=== PATIENT | male | born 1950 | race Caucasian/White ===

== ENCOUNTER 2017-07-04 19:32 | Emergency (ER) | payer OTHER, MEDICAID ==
[~2017-07-04] VITALS: Ht 170.2 cm; Wt 63.5 kg
[~2017-07-04 19:32] MED LIST: ALBUAER3 IN; CITA20TA3 PO; CLOP75TA41 PO; DOXY150C2 PO; GABA250S2 PO; LEVO5TAB2 PO; LOSA50TA6 PO; MELO1TAB56 PO; OMEP20CA74 PO; ONDA4TAB5 PO; PRED-188 PO
[2017-07-04 20:06] LABS: Basophils # (auto) 0.1 uL; Basophils % (auto) 0.9 % (0.0-2.0); Eosinophils # (auto) 0.3 uL; Eosinophils % (auto) 3.6 % (0.0-7.0); Hematocrit 35.1 % (41.0-53.0); Hemoglobin 11.8 g/dL (13.5-17.5); Lymphocytes # (auto) 2.1 uL; Lymphocytes % (auto) 23.7 % (10.0-50.0); Mean Corpuscular Hemoglobin 31.8 pg (28.0-32.0); Mean Corpuscular Hgb Conc. 33.6 g/dL (32.0-36.0); Mean Corpuscular Volume 94.7 fL (80.0-100.0); Monocytes % (auto) 11.5 % (0.0-12.0); Neutrophils # (auto) 5.5 uL; Neutrophils % (auto) 60.3 % (37.0-80.0); Nucleated Red Blood Cells % 0.1 %; Platelet Count (auto) 270 10^3/uL (140-450); Red Cell Distribution Width 16.2 % (11.8-14.3); White Blood Cell 9.1 10^3/uL (4.4-10.8)
[2017-07-04 20:20] LABS: INR 0.94 (0.9-1.15); Partial Thromboplastin Time 29.9 sec (23.78-33.04); Prothrombin Time 10.1 sec (9.27-12.13)
[2017-07-04 20:25] LABS: Alanine Aminotransferase 18 U/L (16-61); Alkaline Phosphatase 90 U/L (45-117); Anion Gap 6 (5-15); Aspartate Aminotransferase 15 U/L (15-37); BUN/Creatinine Ratio 19.5; Bilirubin, Total < 0.1 mg/dL (0.2-1.0); Blood Urea Nitrogen 17 mg/dL (7-18); Calcium 8.5 mg/dL (8.5-10.1); Carbon Dioxide 24 mmol/L (21-32); Chloride 108 mmol/L (98-107); GFR African American 113 mL/min; GFR Non-African American 93 mL/min; Glucose 120 mg/dL (74-106); Potassium 3.9 mmol/L (3.5-5.1); Sodium 138 mmol/L (136-145); Total Protein 6.8 g/dL (6.4-8.2)
[2017-07-04] MEDS ORDERED: IOHEXOL 350 MG/ML 100ML IJ ONE (20:45)
[2017-07-04 21:14] LABS: Magnesium 1.8 mg/dL (1.6-2.6)
[2017-07-04] MEDS ORDERED: HYDR-531 PO (21:41)
[2017-07-04] MEDS ORDERED: CITA10TA70 PO (21:49)
[2017-07-04] MEDS ORDERED: AML5T PO (21:49)
[2017-07-04] MEDS ORDERED: SIMV-8 PO (21:49)
[2017-07-04] MEDS ORDERED: SERT-274 PO (21:49)
[2017-07-04] MEDS ORDERED: LOSA100T22 PO (21:49)
[2017-07-04] MEDS ORDERED: ISOS20TA49 PO (21:49)
[2017-07-04] MEDS ORDERED: MET25T PO (21:49)
[2017-07-04] MEDS ORDERED: TRAZ-184 PO (21:49)
[2017-07-04] MEDS ORDERED: ASPI81CH43 PO (21:49)
[2017-07-04] MEDS ORDERED: CLOP75TA28 PO (21:49)
[2017-07-04] MEDS ORDERED: ENOXAPARIN SOD 60 MG/0.6 ML SYRINGE SC ONE (22:45)
[2017-07-04] MEDS ORDERED: MORPHINE SULFATE 8mg/ml INJ SDV IV ONE (23:00)
[2017-07-05] MEDS ORDERED: MORPHINE SULFATE 8mg/ml INJ SDV IV ONE (02:00)
[2017-07-05 06:54] VITALS: BP 125/71
[2017-07-05] MEDS ORDERED: WARFARIN SODIUM 5 MG TAB PO ONE (17:00)
== END 2017-07-08 07:21 | disposition home or self-care (01) ==
LOC: EDBD 19:32 → ER 19:36
DX: I70.202 Unspecified atherosclerosis of native arteries of extremities, left leg (principal); I74.5 Embolism and thrombosis of iliac artery; R26.2 Difficulty in walking, not elsewhere classified; I10 Essential (primary) hypertension; J44.9 Chronic obstructive pulmonary disease, unspecified; F17.210 Nicotine dependence, cigarettes, uncomplicated; Z79.01 Long term (current) use of anticoagulants; Z79.82 Long term (current) use of aspirin; Z86.73 Personal history of transient ischemic attack (TIA), and cerebral infarction without residual deficits; Z95.5 Presence of coronary angioplasty implant and graft
CPT/HCPCS: 36415; 71045; 73562; 73706; 80053; 83735; 83880; 84484; 85025; 85379; 85610; 85730; 93005; 93971; 96372; 96374; 96376; 99285; J1650; J2270; Q9967

== ENCOUNTER 2017-12-04 09:24 | Emergency (ER) | payer OTHER, MEDICAID ==
[~2017-12-04] VITALS: Ht 175.3 cm; Wt 77.1 kg
[~2017-12-04 09:24] MED LIST changes: +AML5T PO; +ASPI81CH43 PO; +CITA10TA70 PO; +CLOP75TA28 PO; +HYDR-531 PO; +ISOS20TA49 PO; +LOSA-46 PO; +LOSA100T22 PO; -LOSA50TA6 PO; +MET25T PO; +SERT-274 PO; +SIMV-8 PO; +TRAZ-184 PO
[2017-12-04 10:22] LABS: Basophils # (auto) 0.1 uL; Lymphocytes % (auto) 15.1 % (10.0-50.0); Monocytes # (auto) 1.2 uL; Neutrophils % (auto) 67.3 % (37.0-80.0)
[2017-12-04 10:24] LABS: Basophils % (auto) 0.8 % (0.0-2.0); Eosinophils # (auto) 0.2 uL; Hematocrit 35.1 % (41.0-53.0); Hemoglobin 11.7 g/dL (13.5-17.5); Lymphocytes # (auto) 1.2 uL; Mean Corpuscular Hemoglobin 30.5 pg (28.0-32.0); Mean Corpuscular Hgb Conc. 33.3 g/dL (32.0-36.0); Mean Corpuscular Volume 91.6 fL (80.0-100.0); Monocytes % (auto) 14.8 % (0.0-12.0); Neutrophils # (auto) 5.5 uL; Nucleated Red Blood Cells % 0.1 %; Platelet Count (auto) 546 10^3/uL (140-450); Red Blood Cells 3.83 10^6/uL (4.5-5.90); Red Cell Distribution Width 15.7 % (11.8-14.3); White Blood Cell 8.2 10^3/uL (4.4-10.8)
[2017-12-04] MEDS ORDERED: PIPERACILLIN-TAZOB 3.375GM 100 ML IV ONE (10:30)
[2017-12-04 10:31] LABS: Albumin 2.9 g/dL (3.4-5.0); BUN/Creatinine Ratio 10.2; Calcium 8.7 mg/dL (8.5-10.1); Magnesium 2.5 mg/dL (1.6-2.6); Potassium 4.4 mmol/L (3.5-5.1)
[2017-12-04 10:33] LABS: Bilirubin, Total 0.4 mg/dL (0.2-1.0); Total Protein 8.5 g/dL (6.4-8.2)
[2017-12-04] MEDS ORDERED: ONDANSETRON HCL 4 MG/2 ML VIAL IV ONE ×2 (10:45→16:45)
[2017-12-04] MEDS ORDERED: MORPHINE SULFATE 4 MG/ML SYR/VIAL IV ONE ×2 (10:45→16:45)
[2017-12-04] MEDS ORDERED: IOHEXOL 350 MG/ML 100ML IJ ONE (10:53)
[2017-12-04 13:35] LABS: Urine Bacteria NONE SEEN /hpf (None Seen); Urine Blood Negative /uL (Negative); Urine WBC 1 /hpf (0 - 3)
[2017-12-04] MEDS ORDERED: ASPirin 81 mg TAB PO ONE (14:00)
[2017-12-04] MEDS ORDERED: HEPARIN DRIP/D5W 100UNITS/ML 250 ML IV SCH (14:30)
[2017-12-04 14:50] LABS: Basophils # (auto) 0 uL; Mean Corpuscular Hgb Conc. 33.5 g/dL (32.0-36.0); White Blood Cell 8.2 10^3/uL (4.4-10.8)
[2017-12-04 14:52] LABS: Basophils % (auto) 0.5 % (0.0-2.0); Eosinophils # (auto) 0.1 uL; Eosinophils % (auto) 0.9 % (0.0-7.0); Hematocrit 35.2 % (41.0-53.0); Hemoglobin 11.8 g/dL (13.5-17.5); Lymphocytes # (auto) 1.4 uL; Lymphocytes % (auto) 16.7 % (10.0-50.0); Mean Corpuscular Hemoglobin 30.7 pg (28.0-32.0); Mean Corpuscular Volume 91.9 fL (80.0-100.0); Monocytes # (auto) 0.8 uL; Monocytes % (auto) 9.9 % (0.0-12.0); Neutrophils # (auto) 5.9 uL; Platelet Count (auto) 537 10^3/uL (140-450); Red Blood Cells 3.83 10^6/uL (4.5-5.90); Red Cell Distribution Width 15.5 % (11.8-14.3)
[2017-12-04 15:20] LABS: Prothrombin Time 68.9 sec (9.27-12.13)
[2017-12-04 15:30] LABS: INR 7.2 (0.9-1.15)
[2017-12-04] MEDS ORDERED: HYDROcodone-ACET 10/325MG TAB PO ONE (18:45)
[2017-12-04 22:25] LABS: Prothrombin Time 57.4 sec (9.27-12.13)
[2017-12-04 22:30] LABS: INR 5.93 (0.9-1.15)
[2017-12-04 22:32] VITALS: BP 116/62
== END 2017-12-04 22:52 | disposition short-term general hospital (02) ==
LOC: EDBD 09:24 → ER 09:24
DX: I96 Gangrene, not elsewhere classified (principal); J44.9 Chronic obstructive pulmonary disease, unspecified; I10 Essential (primary) hypertension; F17.210 Nicotine dependence, cigarettes, uncomplicated; F12.10 Cannabis abuse, uncomplicated; Z91.013 Allergy to seafood; Z86.73 Personal history of transient ischemic attack (TIA), and cerebral infarction without residual deficits; Z79.899 Other long term (current) drug therapy
CPT/HCPCS: 36415; 73700; 75635; 80053; 81001; 83605; 83735; 84484; 85025; 85610; 85730; 87040; 93926; 96365; 96366; 96367; 96375; 96376; 99285; J1642; J1644; J2270; J2405; J2543; Q9967

== ENCOUNTER 2018-04-04 14:17 | Emergency (ER) | payer OTHER, MEDICAID ==
[~2018-04-04] VITALS: Ht 175.3 cm; Wt 59.0 kg
[2018-04-04] MEDS ORDERED: SODIUM CHLORIDE 0.9% 1,000 ML IV ONE (15:00)
[2018-04-04 15:19] LABS: Basophils # (auto) 0 uL; Basophils % (auto) 0.4 % (0.0-2.0); Eosinophils # (auto) 0.3 uL; Eosinophils % (auto) 3.2 % (0.0-7.0); Hematocrit 32.6 % (41.0-53.0); Hemoglobin 10.7 g/dL (13.5-17.5); Lymphocytes # (auto) 1.9 uL; Lymphocytes % (auto) 24.3 % (10.0-50.0); Mean Corpuscular Hemoglobin 29.8 pg (28.0-32.0); Mean Corpuscular Hgb Conc. 32.7 g/dL (32.0-36.0); Mean Corpuscular Volume 91.1 fL (80.0-100.0); Monocytes % (auto) 12.2 % (0.0-12.0); Neutrophils # (auto) 4.7 uL; Neutrophils % (auto) 59.9 % (37.0-80.0); Platelet Count (auto) 301 10^3/uL (140-450); Red Blood Cells 3.58 10^6/uL (4.5-5.90); Red Cell Distribution Width 14.5 % (11.8-14.3); White Blood Cell 7.8 10^3/uL (4.4-10.8)
[2018-04-04 15:39] LABS: INR 0.95 (0.9-1.15); Partial Thromboplastin Time 29.9 sec (23.78-33.04); Prothrombin Time 10.2 sec (9.27-12.13)
[2018-04-04 15:42] LABS: Calcium 8.3 mg/dL (8.5-10.1); Potassium 3.8 mmol/L (3.5-5.1)
[2018-04-04 15:46] LABS: BUN/Creatinine Ratio 13.6; Bilirubin, Total 0.2 mg/dL (0.2-1.0); Total Protein 6.5 g/dL (6.4-8.2)
[2018-04-04 15:50] VITALS: BP 115/65
== END 2018-04-04 18:21 | disposition home or self-care (01) ==
LOC: ER 14:17 → EDUNIT# 14:17 → ER 18:21
DX: S09.90XA Unspecified injury of head, initial encounter (principal); R55 Syncope and collapse; I10 Essential (primary) hypertension; I25.810 Atherosclerosis of coronary artery bypass graft(s) without angina pectoris; Z95.1 Presence of aortocoronary bypass graft; Z96.649 Presence of unspecified artificial hip joint; X58.XXXA Exposure to other specified factors, initial encounter; Y93.89 Activity, other specified; Y99.8 Other external cause status; Y92.89 Other specified places as the place of occurrence of the external cause
CPT/HCPCS: 36415; 70450; 72125; 80053; 84484; 85025; 85610; 85730; 94761; 99284; J7030

== ENCOUNTER 2019-10-28 19:26 | Inpatient (IN) | payer OTHER, MEDICAID ==
[~2019-10-28] VITALS: Ht 175.3 cm; Wt 63.0 kg
[~2019-10-28 19:26] MED LIST changes: -LOSA-46 PO; +LOSA-69 PO; +ONDA-144 PO; -ONDA4TAB5 PO
[2019-10-28] MEDS ORDERED: SODIUM CHLORIDE 0.9% 500 ML IV ONE (19:43)
[2019-10-28 20:15] LABS: Eosinophils # (auto) 0.1 10 ^3/uL (0-0.8); Monocytes # (auto) 0.8 10 ^3/uL (0-1.3); Neutrophils # (auto) 6.8 10 ^3/uL (1.6-8.6)
[2019-10-28 20:17] LABS: Basophils # (auto) 0.1 10 ^3/uL (0-0.2); Eosinophils % (auto) 1.3 % (0.0-7.0); Hematocrit 33.5 % (41.0-53.0); Hemoglobin 10.9 g/dL (13.5-17.5); Lymphocytes # (auto) 2.2 10 ^3/uL (0.4-5.4); Lymphocytes % (auto) 22.2 % (10.0-50.0); Mean Corpuscular Hemoglobin 26.9 pg (28.0-32.0); Mean Corpuscular Hgb Conc. 32.4 g/dL (32.0-36.0); Monocytes % (auto) 7.7 % (0.0-12.0); Neutrophils % (auto) 67.8 % (37.0-80.0); Platelet Count (auto) 400 10^3/uL (140-450); Red Blood Cells 4.04 10^6/uL (4.5-5.90); Red Cell Distribution Width 17.9 % (11.8-14.3)
[2019-10-28 20:32] LABS: Alanine Aminotransferase 16 U/L (16-61); Albumin 2.7 g/dL (3.4-5.0); Anion Gap 12 (5-15); Aspartate Aminotransferase 12 U/L (15-37); BUN/Creatinine Ratio 6.9; Blood Alcohol < 3.0 mg/dL (0-5); Blood Urea Nitrogen 11 mg/dL (7-18); Calcium 7.9 mg/dL (8.5-10.1); Carbon Dioxide 17 mmol/L (21-32); Chloride 106 mmol/L (98-107); GFR African American 56 mL/min; GFR Non-African American 46 mL/min; Glucose 92 mg/dL (74-106); Potassium 3.4 mmol/L (3.5-5.1); Sodium 135 mmol/L (136-145)
[2019-10-28 20:37] LABS: Alkaline Phosphatase 135 U/L (45-117); Bilirubin, Total 0.2 mg/dL (0.2-1.0); Total Protein 6.3 g/dL (6.4-8.2)
[2019-10-28] MEDS ORDERED: ACETAMINOPHEN 325 MG TAB PO PRN (22:00)
[2019-10-28] MEDS ORDERED: MORPHINE SULF INJ 2 MG/ML SYRINGE 1ML IV PRN (22:00)
[2019-10-28] MEDS ORDERED: NITROGLYCERIN 0.4 MG SL TAB SL PRN (22:00)
[2019-10-28] MEDS ORDERED: ATORVASTATIN 20 MG TAB PO SCH (22:00)
[2019-10-28] MEDS ORDERED: FAMOTIDINE 20 MG TAB PO SCH (22:00)
[2019-10-28] MEDS ORDERED: TEMAZEPAM 15 MG CAP PO PRN (22:00)
[2019-10-28] MEDS ORDERED: POTASSIUM CHL 20 Meq TABLET PO ONE (22:00)
[2019-10-28] MEDS ORDERED: ONDANSETRON HCL 4 MG/2 ML VIAL IV PRN (22:00)
[2019-10-28 22:44] LABS: INR 0.97 (0.9-1.15); Partial Thromboplastin Time 28.3 sec (23.0-31.2)
[2019-10-28] MEDS: FAMOTIDINE 20 MG TAB PO SCH (22:46)
[2019-10-28] MEDS ORDERED: cloNIDine HCL 0.1 MG TAB PO PRN (23:00)
[2019-10-29] MEDS ORDERED: ATOR40TA52 PO (00:50)
[2019-10-29] MEDS ORDERED: ALBU108A5 INH (00:50)
[2019-10-29] MEDS ORDERED: APIX5TAB PO (00:50)
[2019-10-29] MEDS ORDERED: AMLO10TA13 PO (00:50)
[2019-10-29] MEDS ORDERED: GABA800T97 PO (00:50)
[2019-10-29] MEDS ORDERED: ISOS10TA45 PO (00:50)
[2019-10-29] MEDS ORDERED: ALEN1TAB32 PO (00:50)
[2019-10-29] MEDS ORDERED: TIOT17SP INH (00:50)
[2019-10-29 05:00] VITALS: BP 150/66
[2019-10-29 06:50] LABS: Basophils # (auto) 0.1 10 ^3/uL (0-0.2); Basophils % (auto) 0.7 % (0.0-2.0); Eosinophils # (auto) 0.1 10 ^3/uL (0-0.8); Hematocrit 36.5 % (41.0-53.0); Hemoglobin 11.9 g/dL (13.5-17.5); Lymphocytes # (auto) 2.9 10 ^3/uL (0.4-5.4); Mean Corpuscular Hemoglobin 27.3 pg (28.0-32.0); Mean Corpuscular Hgb Conc. 32.7 g/dL (32.0-36.0); Mean Corpuscular Volume 83.5 fL (80.0-100.0); Monocytes # (auto) 1.2 10 ^3/uL (0-1.3); Monocytes % (auto) 8.6 % (0.0-12.0); Neutrophils # (auto) 9.4 10 ^3/uL (1.6-8.6); Neutrophils % (auto) 68.7 % (37.0-80.0); Platelet Count (auto) 449 10^3/uL (140-450); Red Blood Cells 4.37 10^6/uL (4.5-5.90); Red Cell Distribution Width 17.8 % (11.8-14.3); White Blood Cell 13.6 10^3/uL (4.4-10.8)
[2019-10-29 07:02] LABS: BUN/Creatinine Ratio 12.2; Calcium 8.6 mg/dL (8.5-10.1); Potassium 4.2 mmol/L (3.5-5.1)
[2019-10-29 09:00] VITALS: BP 152/78
[2019-10-29] MEDS ORDERED: CLOPIDOGREL BISULFATE 75 MG TAB PO SCH (10:00)
[2019-10-29] MEDS ORDERED: ISOSORBIDE MONONITRATE ER 60 MG TAB PO SCH (10:00)
[2019-10-29] MEDS ORDERED: ASPirin 81 mg TAB PO SCH (10:00)
[2019-10-29] MEDS ORDERED: LOSARTAN POTASSIUM 50 MG TAB PO SCH (10:00)
[2019-10-29] MEDS ORDERED: APIXABAN 2.5 MG TAB PO SCH (10:00)
[2019-10-29] MEDS: FAMOTIDINE 20 MG TAB PO SCH (10:48)
[2019-10-29 13:00] VITALS: BP 162/72
[2019-10-29] MEDS ORDERED: amLODIPine BESYLATE 5 MG TAB PO ONE (13:15)
--- NOTE | 2019-10-29 14:01 | NUR ---
SPOKE WITH PATIENTS DOCTOR REGARDING PHYSICAL THERAPY ORDER. CALLED PT TO LET THEM KNOW ABOUT NEW ORDER. MD WANTS TO DISCHARGE THE PATIENT AFTER THE PT EVALUATION BUT HE SPOKE WITH ME AGAIN AND SAID THAT I SHOULD HELP TO GET THE PATIENT UP AND SEE HOW HE DOES AMBULATING. 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
--- NOTE | 2019-10-29 14:30 | NUR ---
PATIENT AMBULATED THE HALLS WITH WALKER AND STANDBY ASSIST. HE HAD NO COMPLAINTS OF SOB OR DIZZINESS WHEN AMBULATING. ORTHOSTATIC VS: LYING - 58HR, 153/69 SITTING - 55HR 150/69 SUPINE - 65HR 144/68
[2019-10-29 16:41] VITALS: BP 130/70
--- NOTE | 2019-10-29 16:53 | NUR ---
PATIENT BEING DISCHARGED HOME. PATIENT WAS GIVEN INFORMATION HAND OUTS AND EDUCATION ON FOLLOW-UP DATES AND TIMES, DIET, ACTIVITY AND NEW MEDICATIONS. PATIENT WAS GIVEN HIS PRESCRIPTIONS AND ADVISED TO CONSULT WITH PHARMACIST AND READ HANDOUTS. PATIENT WAS INSTRUCTED TO RETURN TO HOSPITAL IF SYMPTOMS WORSEN OR HE EXPERIENCES SOB OR CP. PATIENT VERBALIZED UNDERSTANDING AND HAD NO FURTHER QUESTIONS REGARDING EDUCATION GIVEN. PATIENT IS A/O X4, VS ARE WNL, IV REMOVED- DRESSING IN PLACE. NO S/S OF BLEEDING OR PHLEBITIS. PATIENT WHEELED OUT TO PRIVATE VEHICLE BY OUR DYLON OSMAN- PATIENT SPOUSE IS PICKING HIM UP
[2019-10-29] MEDS ORDERED: FAMOTIDINE 20 MG TAB PO SCH (22:00)
[2019-10-30] MEDS ORDERED: amLODIPine BESYLATE 5 MG TAB PO SCH (10:00)
== END 2019-10-29 16:16 | disposition home or self-care (01) | DRG 312 ==
LOC: ER 19:26 → EDBD 19:26 → EDUNIT# 19:26 → TELE 19:27 → TELE-WESTW 23:17
PROVIDERS: ADMIT Nurse Practitioner; ATTEND Internal Medicine Geriatric Medicine
DX: R55 Syncope and collapse (principal); E44.0 Moderate protein-calorie malnutrition; I65.23 Occlusion and stenosis of bilateral carotid arteries; I95.9 Hypotension, unspecified; D63.1 Anemia in chronic kidney disease; E78.5 Hyperlipidemia, unspecified; E87.6 Hypokalemia; F17.210 Nicotine dependence, cigarettes, uncomplicated; I12.9 Hypertensive chronic kidney disease with stage 1 through stage 4 chronic kidney disease, or unspecified chronic kidney disease; I73.9 Peripheral vascular disease, unspecified; J44.9 Chronic obstructive pulmonary disease, unspecified; K21.9 Gastro-esophageal reflux disease without esophagitis; N18.9 Chronic kidney disease, unspecified; Z79.82 Long term (current) use of aspirin; Z86.73 Personal history of transient ischemic attack (TIA), and cerebral infarction without residual deficits; Z91.013 Allergy to seafood; Z99.3 Dependence on wheelchair; Z90.49 Acquired absence of other specified parts of digestive tract; F12.90 Cannabis use, unspecified, uncomplicated; R00.1 Bradycardia, unspecified
CPT/HCPCS: 36415; 70450; 70551; 71045; 80048; 80053; 80320; 83735; 84484; 85025; 85610; 85730; 93005; 93306; 93886; G0378

== ENCOUNTER 2020-11-27 04:55 | Inpatient (IN) | payer OTHER, MEDICAID ==
[~2020-11-27] VITALS: Ht 172.7 cm; Wt 56.7 kg
[~2020-11-27 04:55] MED LIST changes: +ALBU108A5 INH; -ALBUAER3 IN; +ALEN70TA74 PO; -AML5T PO; +AMLO-496 PO; +APIX5TAB PO; -ASPI81CH43 PO; +ATOR40TA52 PO; -CITA10TA70 PO; -CITA20TA3 PO; -CLOP75TA28 PO; -CLOP75TA41 PO; -DOXY150C2 PO; -GABA250S2 PO; +GABA800T97 PO; +ISOS10TA45 PO; -ISOS20TA49 PO; -LEVO5TAB2 PO; -LOSA-69 PO; -MELO1TAB56 PO; -OMEP20CA74 PO; -ONDA-144 PO; -PRED-188 PO; -SERT-274 PO; -SIMV-8 PO; +TIOT17SP INH
[2020-11-27] MEDS ORDERED: IPRATROPIUM BROM 0.5 MG/2.5ML INH SOL ONE (05:00)
[2020-11-27] MEDS ORDERED: ALBUTEROL SULF 2.5 MG/0.5ML(0.5%) NEB SOLN ONE (05:00)
[2020-11-27] MEDS ORDERED: methylPREDNISolone SOD SUCC 125 MG/2 ML VL IV ONE (05:15)
[2020-11-27] MEDS ORDERED: IPRATROPIUM BROM 0.5 MG/2.5ML INH SOL NEB ONE ×2 (05:15)
[2020-11-27] MEDS ORDERED: ALBUTEROL SULF 2.5 MG/0.5ML(0.5%) NEB SOLN NEB ONE ×2 (05:15)
[2020-11-27] MEDS ORDERED: cefTRIAXone 1GM/50ML D5W 50 ML IV ONE (05:45)
[2020-11-27] MEDS ORDERED: AZITHROMYCIN 500MG/ 250ML 250 ML IV ONE (05:45)
[2020-11-27 06:15] VITALS: BP 184/83
[2020-11-27 06:30] LABS: Basophils # (auto) 0.1 10 ^3/uL (0-0.2); Basophils % (auto) 0.6 % (0.0-2.0); Eosinophils # (auto) 0.3 10 ^3/uL (0-0.8); Eosinophils % (auto) 1.9 % (0.0-7.0); Hematocrit 32.3 % (41.0-53.0); Hemoglobin 10.6 g/dL (13.5-17.5); Lymphocytes % (auto) 14.1 % (10.0-50.0); Mean Corpuscular Hemoglobin 28.9 pg (28.0-32.0); Mean Corpuscular Hgb Conc. 32.8 g/dL (32.0-36.0); Mean Corpuscular Volume 88.1 fL (80.0-100.0); Monocytes % (auto) 7.2 % (0.0-12.0); Neutrophils # (auto) 10.8 10 ^3/uL (1.6-8.6); Neutrophils % (auto) 76.2 % (37.0-80.0); Nucleated Red Blood Cells % 0.1 %; Red Blood Cells 3.66 10^6/uL (4.5-5.90); Red Cell Distribution Width 16.4 % (11.8-14.3); White Blood Cell 14.2 10^3/uL (4.4-10.8)
[2020-11-27 06:36] LABS: Albumin 2.5 g/dL (3.4-5.0); Calcium 8.1 mg/dL (8.5-10.1); Magnesium 2.1 mg/dL (1.6-2.6); Potassium 3.6 mmol/L (3.5-5.1)
[2020-11-27 06:39] LABS: Urine Bacteria NONE SEEN /hpf (None Seen); Urine Blood TRACE /uL (Negative); Urine Hyaline Cast FEW /lpf (0 - 2); Urine WBC 1 /hpf (0 - 3)
[2020-11-27 06:43] LABS: BUN/Creatinine Ratio 12.2; Bilirubin, Total 0.2 mg/dL (0.2-1.0); Total Protein 6.7 g/dL (6.4-8.2)
[2020-11-27] MEDS ORDERED: ACETAMINOPHEN 500 MG TAB PO PRN (10:45)
[2020-11-27] MEDS ORDERED: FUROSEMIDE 20 MG/2 ML VIAL IV ONE (10:45)
[2020-11-27] MEDS ORDERED: ONDANSETRON HCL 4 MG/2 ML VIAL IV PRN (10:45)
[2020-11-27] MEDS ORDERED: HYDROcodone-ACET 5/325MG TAB PO PRN (10:45)
[2020-11-27] MEDS ORDERED: MORPHINE SULFATE INJECTION 2 MG/ML SYRG IV PRN (10:45)
[2020-11-27] MEDS ORDERED: hydrALAZINE HCL 20 MG/ML VL IV PRN (10:45)
[2020-11-27] MEDS ORDERED: NITROGLYCERIN 0.4 MG SL TAB SL PRN (10:45)
[2020-11-27 11:17] VITALS: BP 132/89
[2020-11-27] MEDS: IPRATROPIUM BROM 0.5 MG/2.5ML INH SOL NEB SCH ×2 (11:29→18:00)
[2020-11-27] MEDS: ALBUTEROL SULF 2.5 MG/0.5ML(0.5%) NEB SOLN NEB SCH ×2 (11:29→18:00)
[2020-11-27] MEDS: ENOXAPARIN SOD 40 MG/0.4 ML SYRINGE SC SCH (12:43)
[2020-11-27 17:33] VITALS: BP 148/73
[2020-11-27] MEDS: BUDESONIDE (INHALATION) 0.5 MG/2 ML NEB NEB SCH (19:10)
[2020-11-27] MEDS: METOPROLOL TARTRATE 25 MG TAB PO SCH (21:58)
[2020-11-27] MEDS: TEMAZEPAM 15 MG CAP PO PRN (21:59)
[2020-11-27 22:00] VITALS: BP 154/85
[2020-11-27] MEDS ORDERED: APIXABAN 5 MG TAB PO SCH (22:00)
[2020-11-27] MEDS: MORPHINE SULFATE INJECTION 2 MG/ML SYRG IV PRN (22:15)
[2020-11-28] MEDS ORDERED: methylPREDNISolone SOD SUCC 125 MG/2 ML VL ONE (00:41)
[2020-11-28] MEDS ORDERED: LORazepam 2MG/ML-1ML VIAL IV ONE (00:45)
[2020-11-28] MEDS ORDERED: methylPREDNISolone SOD SUCC 125 MG/2 ML VL IV ONE (00:45)
[2020-11-28] MEDS ORDERED: LORazepam 2MG/ML-1ML VIAL ONE (00:45)
[2020-11-28 01:14] VITALS: BP 190/100
[2020-11-28 05:25] VITALS: BP_SYST 123; BP_SYST 135; BP_DIAS 49; BP_DIAS 84
[2020-11-28 06:56] LABS: Basophils # (auto) 0 10 ^3/uL (0-0.2); Basophils % (auto) 0.1 % (0.0-2.0); Eosinophils # (auto) 0 10 ^3/uL (0-0.8); Hematocrit 29.5 % (41.0-53.0); Hemoglobin 9.9 g/dL (13.5-17.5); Lymphocytes # (auto) 0.8 10 ^3/uL (0.4-5.4); Lymphocytes % (auto) 4.2 % (10.0-50.0); Mean Corpuscular Hemoglobin 29.4 pg (28.0-32.0); Mean Corpuscular Hgb Conc. 33.5 g/dL (32.0-36.0); Mean Corpuscular Volume 87.5 fL (80.0-100.0); Monocytes # (auto) 0.3 10 ^3/uL (0-1.3); Monocytes % (auto) 1.8 % (0.0-12.0); Neutrophils # (auto) 17.1 10 ^3/uL (1.6-8.6); Neutrophils % (auto) 93.9 % (37.0-80.0); Red Blood Cells 3.37 10^6/uL (4.5-5.90); Red Cell Distribution Width 16.7 % (11.8-14.3); White Blood Cell 18.2 10^3/uL (4.4-10.8)
[2020-11-28] MEDS: IPRATROPIUM BROM 0.5 MG/2.5ML INH SOL NEB SCH ×5 (07:06→22:19)
[2020-11-28] MEDS: ALBUTEROL SULF 2.5 MG/0.5ML(0.5%) NEB SOLN NEB SCH ×5 (07:06→22:19)
[2020-11-28] MEDS: BUDESONIDE (INHALATION) 0.5 MG/2 ML NEB NEB SCH ×3 (07:06→18:18)
[2020-11-28 07:16] LABS: BUN/Creatinine Ratio 16.7; Calcium 8.3 mg/dL (8.5-10.1); Potassium 3.8 mmol/L (3.5-5.1)
[2020-11-28 09:00] VITALS: BP 160/87
[2020-11-28] MEDS: PANTOPRAZOLE 40 MG TAB PO SCH (10:35)
[2020-11-28] MEDS: METOPROLOL TARTRATE 25 MG TAB PO SCH ×2 (10:36→22:32)
[2020-11-28] MEDS: methylPREDNISolone SOD SUCC 125 MG/2 ML VL IV SCH ×2 (10:37→22:31)
[2020-11-28] MEDS: ENOXAPARIN SOD 40 MG/0.4 ML SYRINGE SC SCH (10:38)
[2020-11-28] MEDS: FUROSEMIDE 40 MG/4 ML VIAL IV SCH (10:38)
[2020-11-28] MEDS: cefTRIAXone 1GM/50ML D5W 50 ML IV SCH (10:39)
[2020-11-28] MEDS: AZITHROMYCIN 500MG/ 250ML 250 ML IV SCH (10:40)
[2020-11-28 13:00] VITALS: BP 149/72
[2020-11-28 17:00] VITALS: BP 151/95
[2020-11-28 22:00] VITALS: BP 144/82
[2020-11-28] MEDS: TEMAZEPAM 15 MG CAP PO PRN (22:32)
[2020-11-29 04:55] VITALS: BP 161/86
[2020-11-29] MEDS: MORPHINE SULFATE INJECTION 2 MG/ML SYRG IV PRN (05:21)
[2020-11-29] MEDS: BUDESONIDE (INHALATION) 0.5 MG/2 ML NEB NEB SCH ×2 (05:59→22:07)
[2020-11-29] MEDS: IPRATROPIUM BROM 0.5 MG/2.5ML INH SOL NEB SCH ×5 (05:59→22:08)
[2020-11-29] MEDS: ALBUTEROL SULF 2.5 MG/0.5ML(0.5%) NEB SOLN NEB SCH ×5 (05:59→22:06)
[2020-11-29 07:41] LABS: Basophils # (auto) 0 10 ^3/uL (0-0.2); Basophils % (auto) 0.1 % (0.0-2.0); Eosinophils # (auto) 0 10 ^3/uL (0-0.8); Hematocrit 28.2 % (41.0-53.0); Hemoglobin 9.7 g/dL (13.5-17.5); Lymphocytes # (auto) 0.5 10 ^3/uL (0.4-5.4); Lymphocytes % (auto) 5.3 % (10.0-50.0); Mean Corpuscular Hgb Conc. 34.4 g/dL (32.0-36.0); Mean Corpuscular Volume 87.5 fL (80.0-100.0); Monocytes # (auto) 0.4 10 ^3/uL (0-1.3); Monocytes % (auto) 4.5 % (0.0-12.0); Neutrophils # (auto) 7.9 10 ^3/uL (1.6-8.6); Neutrophils % (auto) 90.1 % (37.0-80.0); Red Blood Cells 3.22 10^6/uL (4.5-5.90); Red Cell Distribution Width 16.4 % (11.8-14.3); White Blood Cell 8.8 10^3/uL (4.4-10.8)
[2020-11-29 07:47] LABS: INR 0.99 (0.9-1.15); Partial Thromboplastin Time 30.5 sec (23.6-33.0)
[2020-11-29 07:54] LABS: Calcium 8.2 mg/dL (8.5-10.1); Potassium 4.1 mmol/L (3.5-5.1)
[2020-11-29 08:00] LABS: BUN/Creatinine Ratio 17.8; Magnesium 2.6 mg/dL (1.6-2.6)
[2020-11-29 08:42] VITALS: BP 180/61
[2020-11-29] MEDS ORDERED: ALPRAZolam 0.25 MG TAB PO PRN (09:15)
[2020-11-29] MEDS: PANTOPRAZOLE 40 MG TAB PO SCH (09:41)
[2020-11-29] MEDS: METOPROLOL TARTRATE 25 MG TAB PO SCH ×2 (09:43→21:57)
[2020-11-29] MEDS: AZITHROMYCIN 500MG/ 250ML 250 ML IV SCH (09:45)
[2020-11-29] MEDS: cefTRIAXone 1GM/50ML D5W 50 ML IV SCH (09:45)
[2020-11-29] MEDS: ENOXAPARIN SOD 40 MG/0.4 ML SYRINGE SC SCH (09:45)
[2020-11-29] MEDS: FUROSEMIDE 40 MG/4 ML VIAL IV SCH (09:46)
[2020-11-29] MEDS: methylPREDNISolone SOD SUCC 125 MG/2 ML VL IV SCH ×2 (09:46→21:56)
[2020-11-29] MEDS ORDERED: LOSARTAN POTASSIUM 50 MG TAB PO ONE (10:30)
[2020-11-29] MEDS ORDERED: amLODIPine BESYLATE 5 MG TAB PO ONE (10:30)
[2020-11-29 13:00] VITALS: BP 159/96
[2020-11-29 17:00] VITALS: BP 139/77
[2020-11-29 17:01] LABS: Hematocrit 31.5 % (41.0-53.0); Hemoglobin 10.3 g/dL (13.5-17.5); Mean Corpuscular Hemoglobin 28.8 pg (28.0-32.0); Mean Corpuscular Hgb Conc. 32.9 g/dL (32.0-36.0); Mean Corpuscular Volume 87.6 fL (80.0-100.0); Red Blood Cells 3.59 10^6/uL (4.5-5.90); Red Cell Distribution Width 16.2 % (11.8-14.3); White Blood Cell 9.1 10^3/uL (4.4-10.8)
[2020-11-29 17:02] LABS: Basophils % (manual) 0 (0.0-2.0); Blast Cells 0; Eosinophils % (manual) 0 (0-7); Myelocytes % 0; Promyelocytes % 0; Reactive Lymphocytes 0
[2020-11-29 17:38] LABS: Band Neutrophils % (manual) 3; Lymphocytes % (manual) 3 (10.0-50.0); Metamyelocytes % 1; Monocytes % (manual) 1 (0-12)
[2020-11-29 22:00] VITALS: BP 140/78
[2020-11-29] MEDS ORDERED: traZODone HCL 50 MG TAB PO SCH (22:00)
[2020-11-30 04:48] VITALS: BP 159/84
[2020-11-30] MEDS: ALBUTEROL SULF 2.5 MG/0.5ML(0.5%) NEB SOLN NEB SCH ×3 (06:30→14:14)
[2020-11-30] MEDS: IPRATROPIUM BROM 0.5 MG/2.5ML INH SOL NEB SCH ×3 (06:30→14:14)
[2020-11-30] MEDS: BUDESONIDE (INHALATION) 0.5 MG/2 ML NEB NEB SCH (06:31)
[2020-11-30 09:00] VITALS: BP 152/72
[2020-11-30] MEDS: cefTRIAXone 1GM/50ML D5W 50 ML IV SCH (09:40)
[2020-11-30] MEDS: METOPROLOL TARTRATE 25 MG TAB PO SCH (09:41)
[2020-11-30] MEDS: PANTOPRAZOLE 40 MG TAB PO SCH (09:42)
[2020-11-30] MEDS: FUROSEMIDE 40 MG/4 ML VIAL IV SCH (09:44)
[2020-11-30] MEDS: ENOXAPARIN SOD 40 MG/0.4 ML SYRINGE SC SCH (09:45)
[2020-11-30] MEDS: methylPREDNISolone SOD SUCC 125 MG/2 ML VL IV SCH (09:46)
[2020-11-30] MEDS: MORPHINE SULFATE INJECTION 2 MG/ML SYRG IV PRN (09:54)
[2020-11-30] MEDS ORDERED: LOSARTAN POTASSIUM 50 MG TAB PO SCH (10:00)
[2020-11-30] MEDS ORDERED: amLODIPine BESYLATE 5 MG TAB PO SCH (10:00)
[2020-11-30 10:59] VITALS: BP 152/72
[2020-11-30] MEDS: AZITHROMYCIN 500MG/ 250ML 250 ML IV SCH (11:00)
[2020-11-30 12:46] VITALS: BP 152/72
[2020-11-30 13:00] VITALS: BP 77/77
== END 2020-11-30 14:33 | disposition home or self-care (01) | DRG 193 ==
LOC: ER 04:55 → EDBD 04:55 → TELE 10:35 → TELE-EAST 13:11 → TELE-CENTR 22:31
PROVIDERS: ADMIT Nurse Practitioner Acute Care; ATTEND Internal Medicine Geriatric Medicine
PROC: 5A09357 Assistance with Respiratory Ventilation, Less than 24 Consecutive Hours, Continuous Positive Airway Pressure (ICD-10-PCS; 2020-11-27)
PROC: 5A09357 Assistance with Respiratory Ventilation, Less than 24 Consecutive Hours, Continuous Positive Airway Pressure (ICD-10-PCS; 2020-11-28)
PROC: 0W993ZZ Drainage of Right Pleural Cavity, Percutaneous Approach (ICD-10-PCS; principal; 2020-11-29)
DX: J18.9 Pneumonia, unspecified organism (principal); J96.21 Acute and chronic respiratory failure with hypoxia; I13.0 Hypertensive heart and chronic kidney disease with heart failure and stage 1 through stage 4 chronic kidney disease, or unspecified chronic kidney disease; J44.1 Chronic obstructive pulmonary disease with (acute) exacerbation; E44.0 Moderate protein-calorie malnutrition; I16.9 Hypertensive crisis, unspecified; J90 Pleural effusion, not elsewhere classified; N17.9 Acute kidney failure, unspecified; J98.11 Atelectasis; Z68.1 Body mass index [BMI] 19.9 or less, adult; J44.0 Chronic obstructive pulmonary disease with (acute) lower respiratory infection; I65.29 Occlusion and stenosis of unspecified carotid artery; N18.32 Chronic kidney disease, stage 3b; I50.9 Heart failure, unspecified; Z20.822 Contact with and (suspected) exposure to COVID-19; D64.9 Anemia, unspecified; E78.5 Hyperlipidemia, unspecified; F41.9 Anxiety disorder, unspecified; I73.9 Peripheral vascular disease, unspecified; K21.9 Gastro-esophageal reflux disease without esophagitis; Z79.01 Long term (current) use of anticoagulants; Z79.899 Other long term (current) drug therapy; Z86.718 Personal history of other venous thrombosis and embolism; Z86.73 Personal history of transient ischemic attack (TIA), and cerebral infarction without residual deficits; Z91.013 Allergy to seafood
CPT/HCPCS: 32555; 36415; 36600; 71045; 71250; 76604; 76942; 80048; 80053; 80061; 81001; 82805; 83605; 83615; 83735; 83880; 83986; 84484; 85007; 85025; 85027; 85610; 85730; 87040; 87070; 87205; 87426; 87804; 89051; 93005; 94640; 94644; 94660; 96365; 96368; 96372; 96375; 99291; G0378; J0696

== ENCOUNTER 2021-01-05 14:10 | Inpatient (IN) | payer OTHER, MEDICAID ==
[~2021-01-05] VITALS: Ht 175.3 cm; Wt 55.7 kg
[2021-01-05] MEDS ORDERED: cefTRIAXone 1GM/50ML D5W 50 ML IV ONE (14:45)
[2021-01-05] MEDS ORDERED: methylPREDNISolone SOD SUCC 125 MG/2 ML VL IV ONE (14:45)
[2021-01-05 16:00] LABS: Basophils # (auto) 0.1 10 ^3/uL (0-0.2); Basophils % (auto) 0.3 % (0.0-2.0); Eosinophils # (auto) 0 10 ^3/uL (0-0.8); Hematocrit 27.9 % (41.0-53.0); Hemoglobin 9.4 g/dL (13.5-17.5); Lymphocytes # (auto) 0.4 10 ^3/uL (0.4-5.4); Lymphocytes % (auto) 1.7 % (10.0-50.0); Mean Corpuscular Hemoglobin 29.1 pg (28.0-32.0); Mean Corpuscular Hgb Conc. 33.7 g/dL (32.0-36.0); Mean Corpuscular Volume 86.3 fL (80.0-100.0); Monocytes # (auto) 0.7 10 ^3/uL (0-1.3); Monocytes % (auto) 3.5 % (0.0-12.0); Neutrophils # (auto) 19.4 10 ^3/uL (1.6-8.6); Neutrophils % (auto) 94.5 % (37.0-80.0); Nucleated Red Blood Cells % 0.1 %; Red Blood Cells 3.23 10^6/uL (4.5-5.90); Red Cell Distribution Width 17.3 % (11.8-14.3); White Blood Cell 20.5 10^3/uL (4.4-10.8)
[2021-01-05 16:01] LABS: Urine WBC None Seen /hpf (0 - 3)
[2021-01-05 16:13] LABS: Albumin 2.5 g/dL (3.4-5.0); Calcium 8.1 mg/dL (8.5-10.1); Magnesium 1.7 mg/dL (1.6-2.6); Potassium 3.5 mmol/L (3.5-5.1)
[2021-01-05 16:17] LABS: BUN/Creatinine Ratio 23.3; Bilirubin, Total 0.5 mg/dL (0.2-1.0); Total Protein 6.7 g/dL (6.4-8.2)
[2021-01-05 16:38] LABS: Urine Bacteria NONE SEEN /hpf (None Seen); Urine Blood Negative /uL (Negative); Urine Hyaline Cast FEW /lpf (0 - 2); Urine Specific Gravity 1.006 (1.001-1.035)
[2021-01-05] MEDS ORDERED: FUROSEMIDE 40 MG/4 ML VIAL IV ONE (18:30)
[2021-01-05] MEDS ORDERED: ACETAMINOPHEN 325 MG TAB PO PRN (21:45)
[2021-01-05] MEDS ORDERED: DOCUSATE SOD 100 MG CAP PO PRN (21:45)
[2021-01-05] MEDS ORDERED: hydrALAZINE HCL 20 MG/ML VL IV PRN (21:45)
[2021-01-05] MEDS: FAMOTIDINE (10MG/ML) 2ML VL IV SCH (22:31)
[2021-01-05] MEDS: methylPREDNISolone SOD SUCC 40 MG/ML VL IV SCH (22:32)
[2021-01-05] MEDS: AZITHROMYCIN 500MG/ 250ML 250 ML IV SCH (22:32)
[2021-01-05] MEDS: SODIUM CHLOR 0.9% PF (SALINE LOCK) 10ML VIAL/SYR IV SCH (22:32)
[2021-01-05] MEDS ORDERED: ALBUTEROL SULF 2.5 MG/0.5ML(0.5%) NEB SOLN ONE (22:42)
[2021-01-05] MEDS: APIXABAN 5 MG TAB PO SCH (22:42)
[2021-01-05] MEDS: CARVEDILOL 12.5 MG TAB PO SCH (22:43)
[2021-01-05] MEDS ORDERED: ALBUTEROL SULF 2.5 MG/0.5ML(0.5%) NEB SOLN NEB ONE (22:45)
[2021-01-05] MEDS ORDERED: IPRATROPIUM BROM 0.5 MG/2.5ML INH SOL ONE (22:46)
[2021-01-05] MEDS ORDERED: IPRATROPIUM BROM 0.5 MG/2.5ML INH SOL NEB ONE (23:00)
[2021-01-06] VITALS (8 sets, daily range): BP systolic 130–150; BP diastolic 71–103
[2021-01-06] MEDS ORDERED: NITROGLYCERIN 0.4 MG SL TAB SL PRN
[2021-01-06] MEDS ORDERED: MORPHINE SULFATE INJECTION 2 MG/ML SYRG IV PRN
[2021-01-06] MEDS ORDERED: ALBUTEROL SULF 2.5 MG/0.5ML(0.5%) NEB SOLN ONE (02:15)
[2021-01-06] MEDS ORDERED: IPRATROPIUM BROM 0.5 MG/2.5ML INH SOL ONE (02:15)
[2021-01-06] MEDS: IPRATROPIUM BROM 0.5 MG/2.5ML INH SOL NEB SCH ×6 (02:53→22:04)
[2021-01-06] MEDS: ALBUTEROL SULF 2.5 MG/0.5ML(0.5%) NEB SOLN NEB SCH ×6 (02:53→22:04)
[2021-01-06] MEDS ORDERED: methylPREDNISolone SOD SUCC 40 MG/ML VL ONE (05:52)
[2021-01-06] MEDS: methylPREDNISolone SOD SUCC 40 MG/ML VL IV SCH ×3 (06:01→22:01)
[2021-01-06] MEDS: SODIUM CHLOR 0.9% PF (SALINE LOCK) 10ML VIAL/SYR IV SCH ×3 (06:01→22:03)
[2021-01-06] MEDS: BUDESONIDE (INHALATION) 0.5 MG/2 ML NEB NEB SCH ×2 (06:22→22:04)
[2021-01-06] MEDS ORDERED: ETOMIDATE (2MG/ML) 20ML VIAL IV ONE (09:51)
[2021-01-06] MEDS ORDERED: SUCCINYLCHOLINE CHLORIDE 20 MG/ML 10ML VIAL IV ONE (09:51)
[2021-01-06] MEDS ORDERED: ROCURONIUM 10MG/ML 10ML VIAL IV ONE (09:51)
[2021-01-06] MEDS ORDERED: FUROSEMIDE 40 MG/4 ML VIAL IV SCH (10:00)
[2021-01-06] MEDS ORDERED: LORazepam 2MG/ML-1ML VIAL IV ONE (10:30)
[2021-01-06] MEDS: CARVEDILOL 12.5 MG TAB PO SCH ×2 (11:04→22:02)
[2021-01-06] MEDS: cefTRIAXone 1GM/50ML D5W 50 ML IV SCH (11:04)
[2021-01-06] MEDS: FAMOTIDINE (10MG/ML) 2ML VL IV SCH ×2 (11:05→22:01)
[2021-01-06] MEDS: APIXABAN 5 MG TAB PO SCH ×2 (11:05→22:01)
[2021-01-06 11:37] LABS: Protein, Urine 76.4 mg/dL (0.0-11.9)
[2021-01-06] MEDS: HYDROcodone-ACET 5/325MG TAB PO PRN (17:29)
[2021-01-06] MEDS: AZITHROMYCIN 500MG/ 250ML 250 ML IV SCH (22:02)
[2021-01-07] MEDS: ALBUTEROL SULF 2.5 MG/0.5ML(0.5%) NEB SOLN NEB SCH ×6 (02:08→22:56)
[2021-01-07] MEDS: IPRATROPIUM BROM 0.5 MG/2.5ML INH SOL NEB SCH ×6 (02:08→22:56)
[2021-01-07] MEDS: LORazepam 2MG/ML-1ML VIAL IV PRN ×4 (02:13→22:09)
[2021-01-07 05:00] VITALS: BP 127/70
[2021-01-07] MEDS: SODIUM CHLOR 0.9% PF (SALINE LOCK) 10ML VIAL/SYR IV SCH ×3 (05:31→22:09)
[2021-01-07] MEDS: methylPREDNISolone SOD SUCC 40 MG/ML VL IV SCH ×3 (05:31→22:29)
[2021-01-07 06:02] LABS: BUN/Creatinine Ratio 31.9; Calcium 7.5 mg/dL (8.5-10.1); Magnesium 2.3 mg/dL (1.6-2.6); Potassium 4.1 mmol/L (3.5-5.1)
[2021-01-07 06:04] LABS: Basophils # (auto) 0 10 ^3/uL (0-0.2); Basophils % (auto) 0.1 % (0.0-2.0); Eosinophils # (auto) 0 10 ^3/uL (0-0.8); Lymphocytes # (auto) 0.3 10 ^3/uL (0.4-5.4); Monocytes # (auto) 0.5 10 ^3/uL (0-1.3); Neutrophils # (auto) 14.7 10 ^3/uL (1.6-8.6); White Blood Cell 15.5 10^3/uL (4.4-10.8)
[2021-01-07 06:06] LABS: Hematocrit 23.4 % (41.0-53.0); Hemoglobin 7.9 g/dL (13.5-17.5); Lymphocytes % (auto) 1.7 % (10.0-50.0); Mean Corpuscular Hemoglobin 29.3 pg (28.0-32.0); Mean Corpuscular Hgb Conc. 33.9 g/dL (32.0-36.0); Mean Corpuscular Volume 86.4 fL (80.0-100.0); Monocytes % (auto) 3.4 % (0.0-12.0); Neutrophils % (auto) 94.8 % (37.0-80.0); Red Blood Cells 2.71 10^6/uL (4.5-5.90); Red Cell Distribution Width 17.7 % (11.8-14.3)
[2021-01-07 09:00] VITALS: BP 146/78
[2021-01-07] MEDS: cefTRIAXone 1GM/50ML D5W 50 ML IV SCH (09:53)
[2021-01-07] MEDS: FAMOTIDINE (10MG/ML) 2ML VL IV SCH ×2 (09:53→21:52)
[2021-01-07] MEDS: CLOPIDOGREL BISULFATE 75 MG TAB PO SCH (09:53)
[2021-01-07] MEDS: APIXABAN 5 MG TAB PO SCH ×2 (09:53→21:52)
[2021-01-07] MEDS: CARVEDILOL 12.5 MG TAB PO SCH ×2 (09:54→21:54)
[2021-01-07] MEDS: BUMETANIDE 2.5mg/10ml (0.25 mg/ml) INJ IV SCH ×2 (09:58→18:04)
[2021-01-07] MEDS: BUDESONIDE (INHALATION) 0.5 MG/2 ML NEB NEB SCH ×2 (10:26→18:07)
[2021-01-07 13:00] VITALS: BP 147/88
[2021-01-07 17:00] VITALS: BP 147/77
[2021-01-07 22:00] VITALS: BP 136/77
[2021-01-07] MEDS: AZITHROMYCIN 500MG/ 250ML 250 ML IV SCH (22:09)
[2021-01-08] MEDS: HYDROcodone-ACET 5/325MG TAB PO PRN ×3 (00:05→13:08)
[2021-01-08] MEDS: IPRATROPIUM BROM 0.5 MG/2.5ML INH SOL NEB SCH ×6 (02:20→22:00)
[2021-01-08] MEDS: ALBUTEROL SULF 2.5 MG/0.5ML(0.5%) NEB SOLN NEB SCH ×6 (02:20→22:00)
[2021-01-08 05:00] VITALS: BP 136/81
[2021-01-08] MEDS: methylPREDNISolone SOD SUCC 40 MG/ML VL IV SCH ×3 (05:17→22:25)
[2021-01-08] MEDS: LORazepam 2MG/ML-1ML VIAL IV PRN ×4 (05:17→23:38)
[2021-01-08] MEDS: SODIUM CHLOR 0.9% PF (SALINE LOCK) 10ML VIAL/SYR IV SCH ×3 (05:17→22:07)
[2021-01-08] MEDS: BUMETANIDE 2.5mg/10ml (0.25 mg/ml) INJ IV SCH ×2 (05:17→18:00)
[2021-01-08 05:51] LABS: Basophils # (auto) 0 10 ^3/uL (0-0.2); Eosinophils # (auto) 0 10 ^3/uL (0-0.8); Hematocrit 25.6 % (41.0-53.0); Hemoglobin 8.7 g/dL (13.5-17.5); Lymphocytes # (auto) 0.3 10 ^3/uL (0.4-5.4); Lymphocytes % (auto) 1.7 % (10.0-50.0); Mean Corpuscular Hemoglobin 29.1 pg (28.0-32.0); Mean Corpuscular Hgb Conc. 33.8 g/dL (32.0-36.0); Monocytes # (auto) 0.6 10 ^3/uL (0-1.3); Monocytes % (auto) 4.2 % (0.0-12.0); Neutrophils # (auto) 13.8 10 ^3/uL (1.6-8.6); Neutrophils % (auto) 94.1 % (37.0-80.0); Nucleated Red Blood Cells % 0.1 %; Red Blood Cells 2.98 10^6/uL (4.5-5.90); Red Cell Distribution Width 17.2 % (11.8-14.3); White Blood Cell 14.6 10^3/uL (4.4-10.8)
[2021-01-08 06:11] LABS: BUN/Creatinine Ratio 36.1; Calcium 7.6 mg/dL (8.5-10.1)
[2021-01-08 08:20] VITALS: BP 154/74
[2021-01-08 08:30] VITALS: BP 154/74
[2021-01-08] MEDS: FAMOTIDINE (10MG/ML) 2ML VL IV SCH ×2 (08:33→22:28)
[2021-01-08] MEDS: cefTRIAXone 1GM/50ML D5W 50 ML IV SCH (08:33)
[2021-01-08] MEDS: CARVEDILOL 12.5 MG TAB PO SCH ×2 (08:33→22:26)
[2021-01-08] MEDS: APIXABAN 5 MG TAB PO SCH ×2 (08:34→22:26)
[2021-01-08] MEDS: CLOPIDOGREL BISULFATE 75 MG TAB PO SCH (08:35)
[2021-01-08] MEDS: BUDESONIDE (INHALATION) 0.5 MG/2 ML NEB NEB SCH ×2 (10:33→19:30)
[2021-01-08 12:30] VITALS: BP 150/83
[2021-01-08 16:54] VITALS: BP 150/83
[2021-01-08] MEDS: SEVELAMER 800 MG TAB PO SCH (18:00)
[2021-01-08 22:00] VITALS: BP 158/87
[2021-01-08] MEDS: AZITHROMYCIN 500MG/ 250ML 250 ML IV SCH (22:26)
[2021-01-09 05:00] VITALS: BP 150/87
[2021-01-09] MEDS: SODIUM CHLOR 0.9% PF (SALINE LOCK) 10ML VIAL/SYR IV SCH ×3 (05:34→21:21)
[2021-01-09] MEDS: methylPREDNISolone SOD SUCC 40 MG/ML VL IV SCH ×3 (05:34→21:21)
[2021-01-09] MEDS: BUMETANIDE 2.5mg/10ml (0.25 mg/ml) INJ IV SCH ×2 (05:42→18:02)
[2021-01-09] MEDS: ALBUTEROL SULF 2.5 MG/0.5ML(0.5%) NEB SOLN NEB SCH ×5 (06:40→22:37)
[2021-01-09] MEDS: IPRATROPIUM BROM 0.5 MG/2.5ML INH SOL NEB SCH ×5 (06:41→22:37)
[2021-01-09] MEDS: BUDESONIDE (INHALATION) 0.5 MG/2 ML NEB NEB SCH ×2 (06:41→22:37)
[2021-01-09 06:46] LABS: BUN/Creatinine Ratio 33.3; Calcium 7.5 mg/dL (8.5-10.1)
[2021-01-09] MEDS: HALOPERIDOL LACTATE 5 MG/ML INJ VIAL IM PRN ×3 (06:54→21:00)
[2021-01-09 08:15] VITALS: BP 150/87
[2021-01-09 08:57] VITALS: BP 152/88
[2021-01-09] MEDS: FAMOTIDINE (10MG/ML) 2ML VL IV SCH ×2 (10:49→21:20)
[2021-01-09] MEDS: cefTRIAXone 1GM/50ML D5W 50 ML IV SCH (10:54)
[2021-01-09] MEDS: CARVEDILOL 12.5 MG TAB PO SCH ×2 (11:44→21:21)
[2021-01-09] MEDS: SEVELAMER 800 MG TAB PO SCH ×3 (11:44→18:02)
[2021-01-09] MEDS: APIXABAN 5 MG TAB PO SCH ×2 (11:45→21:21)
[2021-01-09] MEDS: CLOPIDOGREL BISULFATE 75 MG TAB PO SCH (11:45)
[2021-01-09] MEDS: HALOPERIDOL LACTATE 5 MG/ML INJ VIAL IM ONE (12:12)
[2021-01-09 12:46] VITALS: BP 155/95
[2021-01-09 16:56] VITALS: BP 151/86
[2021-01-09] MEDS: AZITHROMYCIN 500MG/ 250ML 250 ML IV SCH (21:21)
[2021-01-09 21:44] VITALS: BP 145/96
[2021-01-10] MEDS: IPRATROPIUM BROM 0.5 MG/2.5ML INH SOL NEB SCH ×6 (02:00→22:05)
[2021-01-10] MEDS: ALBUTEROL SULF 2.5 MG/0.5ML(0.5%) NEB SOLN NEB SCH ×6 (02:00→22:05)
[2021-01-10 05:00] VITALS: BP 158/95
[2021-01-10] MEDS: HALOPERIDOL LACTATE 5 MG/ML INJ VIAL IM PRN (05:23)
[2021-01-10] MEDS: SODIUM CHLOR 0.9% PF (SALINE LOCK) 10ML VIAL/SYR IV SCH ×3 (05:36→21:20)
[2021-01-10] MEDS: methylPREDNISolone SOD SUCC 40 MG/ML VL IV SCH ×3 (05:36→21:21)
[2021-01-10] MEDS: BUMETANIDE 2.5mg/10ml (0.25 mg/ml) INJ IV SCH ×2 (05:36→18:16)
[2021-01-10] MEDS: cefTRIAXone 1GM/50ML D5W 50 ML IV SCH (07:56)
[2021-01-10] MEDS: SEVELAMER 800 MG TAB PO SCH ×3 (07:56→18:16)
[2021-01-10 09:00] VITALS: BP 149/73
[2021-01-10] MEDS: CARVEDILOL 12.5 MG TAB PO SCH ×2 (09:48→21:20)
[2021-01-10] MEDS: FAMOTIDINE (10MG/ML) 2ML VL IV SCH ×2 (09:48→21:21)
[2021-01-10] MEDS: APIXABAN 5 MG TAB PO SCH ×2 (09:49→21:20)
[2021-01-10] MEDS: CLOPIDOGREL BISULFATE 75 MG TAB PO SCH (09:49)
[2021-01-10] MEDS: BUDESONIDE (INHALATION) 0.5 MG/2 ML NEB NEB SCH ×2 (10:33→22:05)
[2021-01-10 12:18] LABS: BUN/Creatinine Ratio 33.3; Calcium 7.7 mg/dL (8.5-10.1); Potassium 3.8 mmol/L (3.5-5.1)
[2021-01-10] MEDS ORDERED: SALINE 0.65 % NASAL SPRAY 45ML BOTTLE EACHNOSTRI PRN (12:30)
[2021-01-10] MEDS: ONDANSETRON HCL 4 MG/2 ML VIAL IV PRN ×2 (12:45→18:16)
[2021-01-10 13:00] VITALS: BP 142/74
[2021-01-10 17:00] VITALS: BP_SYST 157; BP_SYST 94; BP_DIAS 64; BP_DIAS 91
[2021-01-10] MEDS: AZITHROMYCIN 500MG/ 250ML 250 ML IV SCH (21:20)
[2021-01-10 22:00] VITALS: BP 159/86
[2021-01-10] MEDS: HYDROcodone-ACET 5/325MG TAB PO PRN (22:30)
[2021-01-11] MEDS: ALBUTEROL SULF 2.5 MG/0.5ML(0.5%) NEB SOLN NEB SCH ×6 (02:04→22:00)
[2021-01-11] MEDS: IPRATROPIUM BROM 0.5 MG/2.5ML INH SOL NEB SCH ×6 (02:04→22:00)
[2021-01-11] MEDS: HALOPERIDOL LACTATE 5 MG/ML INJ VIAL IM PRN (03:26)
[2021-01-11 05:00] VITALS: BP 147/82
[2021-01-11 05:06] LABS: Potassium 4.6 mmol/L (3.5-5.1)
[2021-01-11 05:46] LABS: Calcium 7.9 mg/dL (8.5-10.1)
[2021-01-11] MEDS: methylPREDNISolone SOD SUCC 40 MG/ML VL IV SCH ×3 (06:20→22:18)
[2021-01-11] MEDS: SODIUM CHLOR 0.9% PF (SALINE LOCK) 10ML VIAL/SYR IV SCH ×3 (06:20→22:18)
[2021-01-11] MEDS: BUMETANIDE 2.5mg/10ml (0.25 mg/ml) INJ IV SCH (06:20)
[2021-01-11 09:00] VITALS: BP_SYST 149; BP_SYST 95; BP_DIAS 56; BP_DIAS 83
[2021-01-11] MEDS: SEVELAMER 800 MG TAB PO SCH ×3 (09:02→18:00)
[2021-01-11] MEDS: APIXABAN 5 MG TAB PO SCH ×2 (09:02→22:19)
[2021-01-11] MEDS: CARVEDILOL 12.5 MG TAB PO SCH ×2 (09:02→22:47)
[2021-01-11] MEDS: CLOPIDOGREL BISULFATE 75 MG TAB PO SCH (09:02)
[2021-01-11] MEDS ORDERED: ALBUMIN 25% 50 ML IV ONE (10:15)
[2021-01-11] MEDS: BUDESONIDE (INHALATION) 0.5 MG/2 ML NEB NEB SCH ×2 (10:27→18:42)
[2021-01-11 13:00] VITALS: BP 145/81
[2021-01-11] MEDS: FAMOTIDINE (10MG/ML) 2ML VL IV SCH ×2 (14:08→22:17)
[2021-01-11] MEDS: cefTRIAXone 1GM/50ML D5W 50 ML IV SCH (14:08)
[2021-01-11 17:00] VITALS: BP 135/83
[2021-01-11 22:00] VITALS: BP 156/85
[2021-01-11] MEDS: AZITHROMYCIN 500MG/ 250ML 250 ML IV SCH (22:18)
[2021-01-12] MEDS: IPRATROPIUM BROM 0.5 MG/2.5ML INH SOL NEB SCH ×4 (02:00→14:46)
[2021-01-12] MEDS: ALBUTEROL SULF 2.5 MG/0.5ML(0.5%) NEB SOLN NEB SCH ×4 (02:00→14:46)
[2021-01-12 05:00] VITALS: BP_SYST 149; BP_SYST 151; BP_DIAS 70
[2021-01-12] MEDS: methylPREDNISolone SOD SUCC 40 MG/ML VL IV SCH ×2 (05:36→15:40)
[2021-01-12] MEDS: SODIUM CHLOR 0.9% PF (SALINE LOCK) 10ML VIAL/SYR IV SCH ×2 (05:37→15:40)
[2021-01-12 06:02] LABS: BUN/Creatinine Ratio 28.7; Calcium 8.2 mg/dL (8.5-10.1); Potassium 3.7 mmol/L (3.5-5.1)
[2021-01-12 08:44] VITALS: BP 149/70
[2021-01-12 09:00] VITALS: BP 141/76
[2021-01-12] MEDS: FAMOTIDINE (10MG/ML) 2ML VL IV SCH (10:13)
[2021-01-12] MEDS: ONDANSETRON HCL 4 MG/2 ML VIAL IV PRN (10:13)
[2021-01-12] MEDS: APIXABAN 5 MG TAB PO SCH (10:14)
[2021-01-12] MEDS: SEVELAMER 800 MG TAB PO SCH ×3 (10:14→18:00)
[2021-01-12] MEDS: CARVEDILOL 12.5 MG TAB PO SCH (10:15)
[2021-01-12] MEDS: CLOPIDOGREL BISULFATE 75 MG TAB PO SCH (10:15)
[2021-01-12] MEDS: cefTRIAXone 1GM/50ML D5W 50 ML IV SCH (10:25)
[2021-01-12] MEDS: BUDESONIDE (INHALATION) 0.5 MG/2 ML NEB NEB SCH (10:56)
[2021-01-12 12:30] VITALS: BP 147/72
[2021-01-12 16:53] VITALS: BP 136/68
[2021-01-12 17:13] VITALS: BP 136/68
== END 2021-01-12 18:55 | disposition home health service (06) | DRG 193 ==
LOC: EDUNIT# 14:10 → ER 14:10 → EDBD 14:10 → TELE-CENTR 23:57 → ER 01-06 01:27
PROVIDERS: ADMIT Nurse Practitioner Family; ATTEND Internal Medicine Geriatric Medicine
PROC: 5A09357 Assistance with Respiratory Ventilation, Less than 24 Consecutive Hours, Continuous Positive Airway Pressure (ICD-10-PCS; principal; 2021-01-06)
PROC: 5A09357 Assistance with Respiratory Ventilation, Less than 24 Consecutive Hours, Continuous Positive Airway Pressure (ICD-10-PCS; 2021-01-07)
DX: J18.9 Pneumonia, unspecified organism (principal); N17.0 Acute kidney failure with tubular necrosis; J96.21 Acute and chronic respiratory failure with hypoxia; J44.1 Chronic obstructive pulmonary disease with (acute) exacerbation; N18.4 Chronic kidney disease, stage 4 (severe); E87.3 Alkalosis; I13.0 Hypertensive heart and chronic kidney disease with heart failure and stage 1 through stage 4 chronic kidney disease, or unspecified chronic kidney disease; J44.0 Chronic obstructive pulmonary disease with (acute) lower respiratory infection; I50.42 Chronic combined systolic (congestive) and diastolic (congestive) heart failure; D72.829 Elevated white blood cell count, unspecified; R73.9 Hyperglycemia, unspecified; E88.09 Other disorders of plasma-protein metabolism, not elsewhere classified; D63.1 Anemia in chronic kidney disease; I65.29 Occlusion and stenosis of unspecified carotid artery; I73.9 Peripheral vascular disease, unspecified; K21.9 Gastro-esophageal reflux disease without esophagitis; N18.30 Chronic kidney disease, stage 3 unspecified; E83.39 Other disorders of phosphorus metabolism; E78.5 Hyperlipidemia, unspecified; Z20.822 Contact with and (suspected) exposure to COVID-19; M19.90 Unspecified osteoarthritis, unspecified site; Z96.641 Presence of right artificial hip joint; T38.0X5A Adverse effect of glucocorticoids and synthetic analogues, initial encounter; Z86.718 Personal history of other venous thrombosis and embolism; Z86.73 Personal history of transient ischemic attack (TIA), and cerebral infarction without residual deficits; Y92.89 Other specified places as the place of occurrence of the external cause; Z91.013 Allergy to seafood
CPT/HCPCS: 36415; 36600; 71045; 76775; 80048; 80053; 81001; 82306; 82570; 82805; 82962; 83605; 83735; 83880; 83970; 84100; 84156; 84300; 84484; 85025; 85379; 87040; 87426; 93005; 94640; 94660; 96365; 96375; 97163; 99291; G0378; J0330; J0696; J2405; J3490